=== PATIENT | male | born 1965 | race Caucasian/White ===

== ENCOUNTER 2020-12-05 07:44 | Outpatient (CLI) | payer OTHER, SELFPAY ==
--- NOTE | 2020-12-21 16:50 | WPDHOMESLEEP ---
Sleep Study - Home Unattended Date of Study: 12/05/20 Ordering Provider: YORDY Posey-Mike Interpreting Provider: Emilee Reid MD [facility] Sleep Study Type: Watch PAT Height: 1.65 m Weight: 79.379 kg Body Mass Index: 29.1 Neck Circumference (inches): 17.5 [place]: 10 Reason for Sleep Study Snoring, wakes up tired Sleep History Kenton Singh is a 54 year old man with poor quality sleep. He constantly snores loudly enough that others complain. He rarely awakens at night with heartburn, belching or coughing. He does not awaken from sleep feeling short of breath. He rarely has trouble sleeping with a cold. He does not wake up gasping for breath at night, does not have breathing problems witnessed by others and does not sweat excessively at night. He does not notice his heart pounding irregularly at night. He occasionally falls asleep during the day, never involuntarily and never while driving. He does not have loss of muscle tone with strong emotion. He does not have daytime difficulties during the daytime at work due to excessive sleepiness. He does not feel paralyzed on waking or falling asleep and does not have vivid dreamlike scenes upon awakening or falling asleep. He does not feel afraid to go to sleep. He does not have nightmares. He frequently remembers his dreams. He occasionally has racing thoughts. He does not feel sad or depressed. He frequently feels anxious. He rarely has muscular tension. He rarely notices parts of his body jerking. He does not kick at night. He denies having crawling and aching feelings in his legs or any kind of leg pain at night. He does not have morning jaw pain. He does not grind his teeth during sleep. He is not bothered by pain during the day. He is not awakened by pain at night. He occasionally wakes up feeling stiff in the morning. He does not wake up with sore or achy muscles. He does not wake up with pain in the neck and spine. He reports a 20 lb weight gain in the last year. Normal bedtime is 9:00 p.m. falling asleep within 10-15 minutes waking up a few times at night to roll over. It takes about 5 minutes to get to sleep again. He wakes in the morning between 4:00 a.m. and 5:30 a.m.. He is currently working overtime and this is why he has to be up at 4:00 am. On the weekends he goes to bed later, 10:30 p.m. and he gets recovery sleep, wakes at 9:00 a.m.. He does take naps. A short nap is not refreshing. He may be drowsy some mornings. On occasion, he awakens feeling refreshed. Habits: Never smoked tobacco. Caffeine 3 servings a day. No alcohol or recreational drugs. [facility] Past Medical History Medical History (Updated 12/21/20 @ 20:27 by Emilee Reid MD) Chicken pox Depression Hypercholesterolemia with hyperglyceridemia Measles Sleep apnea Surgical History Surgical History H/O shoulder surgery right shoulder surgery Family History Family History Mother Family history of diabetes mellitus in first degree relative Sibling Hypertension Diabetes mellitus Social History Social History (Updated 04/04/20 @ 11:30 by Bhargavi Mojica [facility]) Smoking status: Never smoker Alcohol intake: current Medications Home Medications Medication Instructions Recorded Confirmed Type atorvastatin 10 mg tablet 10 mg PO DAILY #90 tablet 07/26/20 07/26/20 Rx duloxetine 60 mg capsule,delayed 60 mg PO DAILY #90 cap 07/26/20 07/26/20 Rx release fluticasone propionate 50 2 spray INTRANASAL DAILY 07/26/20 07/26/20 History mcg/actuation nasal spray,suspension loratadine 10 mg tablet 10 mg PO DAILY 07/26/20 07/26/20 History Sleep Procedure The sleep study was completed using [employer] a technically adequate device with seven channels: peripheral arterial tone, actigraphy, body position, snore, respiratory movement, pulse oximetry, sleep
[2020-12-21 20:16] VITALS: BMI 29.1
== END 2020-12-05 07:45 | disposition home or self-care (01) ==
LOC: ANHCSM 07:45
PROVIDERS: PCP Internal Medicine; Visit Provider Clinical Nurse Specialist
DX: G47.33 Obstructive sleep apnea (adult) (pediatric) (principal); G47.10 Hypersomnia, unspecified; Z79.899 Other long term (current) drug therapy
CPT/HCPCS: 95800

== ENCOUNTER → 2021-01-24 06:44 | Outpatient (CLI) | payer OTHER, SELFPAY ==
[2021-01-24 17:04] LABS: SARS-CoV-2 RNA PCR Negative
== END ==
PROVIDERS: PCP Internal Medicine; Visit Provider Internal Medicine Critical Care Medicine
DX: R68.89 Other general symptoms and signs (principal); Z20.822 Contact with and (suspected) exposure to COVID-19
CPT/HCPCS: C9803; U0003; U0005

== ENCOUNTER 2021-01-26 08:00 | Outpatient (CLI) | payer OTHER, SELFPAY ==
--- NOTE | 2021-02-14 13:03 | WPDSLEEPSTUD ---
Sleep Study Date of Study: 01/26/21 Ordering Provider: ANNI Posey Interpreting Physician: Emilee Reid MD Sleep Study Type: CPAP Titration Height: 1.65 m Weight: 83.461 kg Body Mass Index: 30.6 Neck Circumference (inches): 16 [place]: 8 Reason for Sleep Study Home sleep test with WatchPat on 12/05/2020 with moderate obstructive sleep apnea AHI 22.1 with half the events scored as central apneas, desaturation to 77% and snoring. He had increased AHI in the supine position, AHI 90.6; He presents for CPAP titration. Sleep History Kenton Singh is a 54 year old man with poor quality sleep. He constantly snores loudly enough that others complain. He rarely awakens at night with heartburn, belching or coughing. He does not awaken from sleep feeling short of breath. He rarely has trouble sleeping with a cold. He does not wake up gasping for breath at night, does not have breathing problems witnessed by others and does not sweat excessively at night. He does not notice his heart pounding irregularly at night. He occasionally falls asleep during the day, never involuntarily and never while driving. He does not have loss of muscle tone with strong emotion. He does not have daytime difficulties during the daytime at work due to excessive sleepiness. He does not feel paralyzed on waking or falling asleep and does not have vivid dreamlike scenes upon awakening or falling asleep. He does not feel afraid to go to sleep. He does not have nightmares. He frequently remembers his dreams. He occasionally has racing thoughts. He does not feel sad or depressed. He frequently feels anxious. He rarely has muscular tension. He rarely notices parts of his body jerking. He does not kick at night. He denies having crawling and aching feelings in his legs or any kind of leg pain at night. He does not have morning jaw pain. He does not grind his teeth during sleep. He is not bothered by pain during the day. He is not awakened by pain at night. He occasionally wakes up feeling stiff in the morning. He does not wake up with sore or achy muscles. He does not wake up with pain in the neck and spine. He reports a 20 lb weight gain in the last year. Normal bedtime is 9:00 p.m. falling asleep within 10-15 minutes waking up a few times at night to roll over. It takes about 5 minutes to get to sleep again. He wakes in the morning between 4:00 a.m. and 5:30 a.m.. He is currently working overtime and this is why he has to be up at 4:00 am. On the weekends he goes to bed later, 10:30 p.m. and he gets recovery sleep, wakes at 9:00 a.m.. He does take naps. A short nap is not refreshing. He may be drowsy some mornings. On occasion, he awakens feeling refreshed. Habits: Never smoked tobacco. Caffeine 3 servings a day. No alcohol or recreational drugs. [facility] Past Medical History Medical History (Updated 02/14/21 @ 13:13 by Emilee Reid MD) Chicken pox Depression Hypercholesterolemia with hyperglyceridemia Measles Obstructive sleep apnea (~11/2020) Sleep apnea Surgical History Surgical History H/O shoulder surgery right shoulder surgery Family History Family History Mother Family history of diabetes mellitus in first degree relative Sibling Hypertension Diabetes mellitus Social History Social History (Updated 04/04/20 @ 11:30 by Bhargavi Mojica [facility]) Smoking status: Never smoker Alcohol intake: current Medications Home Medications Medication Instructions Recorded Confirmed Type atorvastatin 10 mg tablet 10 mg PO DAILY #90 tablet 07/26/20 07/26/20 Rx duloxetine 60 mg capsule,delayed 60 mg PO DAILY #90 cap 07/26/20 07/26/20 Rx release fluticasone propionate 50 2 spray INTRANASAL DAILY 07/26/20 07/26/20 History mcg/actuation nasal spray,suspension loratadine 10 mg tablet 10 mg PO CLARITA
[2021-02-14 13:05] VITALS: BMI 30.6
== END 2021-01-26 08:01 | disposition home or self-care (01) ==
LOC: ANHCSM 08:01
PROVIDERS: PCP Internal Medicine; Visit Provider Clinical Nurse Specialist
DX: G47.33 Obstructive sleep apnea (adult) (pediatric) (principal)
CPT/HCPCS: 95811

== ENCOUNTER 2024-06-05 13:36 | Emergency (ER) | payer OTHER, SELFPAY ==
[2024-06-05] VITALS (11 sets, daily range): BP systolic 120–147; BP diastolic 77–90; PULSE 73–85; RESP 13–22; TEMP 36.6–36.8; O2SAT 73–100
--- NOTE | ~2024-06-05 | XR_ITS ---
XR chest 2V DATE: 06/05/2024 16:26 INDICATION: Shortness of breath TECHNIQUE: PA and lateral views COMPARISON: None FINDINGS: Normal heart size. No hilar or mediastinal enlargement. No pulmonary infiltrate or consolid ation, pleural effusion or pulmonary vascular congestion or pneumothorax. Included skeletal structures are unremarkable other than prominent degenerative disc disease in the l ower cervical spine and minimal degenerative spurring of the thoracic spine.. IMPRESSION: No active cardiopulmonary disease Reviewed, dictated and finalized at location A.
--- NOTE | 2024-06-05 15:03 | PC.NURSE ---
Pt reports he took pre-work out creatine this morning, 1-2 hours after taking developed diaphoresis, shaking, feeling of syncope & became very anxious. He proceeded to drink an energy drink. Pt states symptoms have increased. Denies diabetes, cardiac history
--- NOTE | 2024-06-05 15:47 | ECG_ITS ---
Test Date: 2024-06-05 16:05:19 Measurements Intervals [place] Rate: 74 P: 45 NH: 135 QRS: 1 QRSD: 97 T: 12 QT: 418 QTc: 464 Interpretive Statements SINUS RHYTHM NORMAL ECG No previous ECG available for comparison Electronically Signed On 06-05-2024 20:34:46 CDT by Gordo Cole D.O.
[2024-06-05 16:17] LABS: Basophils Absolute Auto 0.1 K/mm3 (0.0-0.1); Basophils Percent Auto 0.4 % (0.2-1.2); Eosinophils Absolute Auto 0.1 K/mm3 (0-0.3); Hematocrit 42.7 % (42.0-52.0); Hemoglobin 14.7 g/dL (14.0-18.0); Immature Granulocyte Absolute 0.04 K/mm3 (0.00-0.031); Immature Granulocyte Percent A 0.3 % (0-0.5); Lymphocytes Absolute Auto 1.77 K/mm3 (0.9-3.2); Lymphocytes Percent Auto 14.8 % (18.3-44.2); Mean Corpuscular HGB Conc 34.4 g/dl (32-36); Mean Corpuscular Hemoglobin 31.1 pg (26-34); Mean Corpuscular Volume 90.3 fl (80-100); Mean Platelet Volume 10.6 fl (7.4-10.4); Monocytes Absolute Auto 0.7 K/mm3 (0.1-0.6); Monocytes Percent Auto 5.9 % (2.6-8.5); Neutrophils Absolute Auto 9.3 K/mm3 (1.3-6.7); Neutrophils Percent Auto 77.6 % (45.5-73.1); Platelet Count Result 247 k/mm3 (150-375); Red Blood Count 4.73 M/mm3 (4.6-6.20); Red Cell Distribution Width 12.4 % (11.5-14.5)
--- NOTE | 2024-06-05 16:24 | PC.NURSE ---
Pt c/o nausea, Violet PAINT PREPPER notified and orders received
[2024-06-05 16:25] LABS: Lactic Acid Reflex 1.3 mmol/L (0.7-2.0)
[2024-06-05 16:27] LABS: Alanine Aminotransferase 40 U/L (6-50); Albumin Level 4.5 g/dL (3.5-5.1); Alkaline Phosphatase 48 U/L (38-126); Anion Gap 8 mmol/L (4-12); Aspartate Amino Transferase 30 U/L (17-59); Bilirubin,Total 0.6 mg/dL (0.2-1.3); Blood Urea Nitrogen 20 mg/dL (9-20); Calcium 9.5 mg/dL (8.4-10.2); Carbon Dioxide 29 mmol/L (22-30); Chloride 100 mmol/L (98-107); Estimated CRCL calculation 63 ml/min; Estimated Glomerular Filt Rate > 60; Glucose 105 mg/dL (65-110); Potassium 3.7 mmol/L (3.4-5.0); Sodium 137 mmol/L (137-145)
[2024-06-05] MEDS: SODIUM CHLORIDE 0.9% IV 1,000 ML 999 ML IV CONT (16:30)
[2024-06-05] MEDS: ONDANSETRON INJ 4 MG/2 ML VIAL IV PUSH (16:30)
[2024-06-05 16:32] LABS: D Dimer < 0.27 ug/mL (<0.48)
[2024-06-05 16:38] LABS: Troponin I < 0.012 ng/mL (0.000-0.034)
--- NOTE | 2024-06-05 16:44 | ED.GENADULT ---
HPI - General Adult General Chief complaint: Anxiety Stated complaint: anxious Time Seen by Provider: 06/05/24 14:50 History of Present Illness HPI narrative: Patient is a 58-year-old male who presents to the ER complaints of a near syncopal episode prior to. He reports he took some Creatine powder before working out this morning. Patient reports he went home had approximately 3 sips of the energy drink while they were at a friend's house. On their way home patient started experiencing motion sickness. He started sweating, shaking, and feeling short of breath. He reports he vomited and felt like he was going to pass out. Patient reports he has not drink much water today. He reports his only medical history is high cholesterol for which he takes medication at home. Patient denies chest pain, other signs of illness, or one-sided weakness/tingling/numbness. Related Data Home Medications Medication Instructions Recorded Confirmed aspirin 81 mg tablet,delayed 81 mg PO DAILY 12/11/21 08/06/23 release (Adult Low Dose Aspirin) Allergies Allergy/AdvReac Type Severity Reaction Status Date / Time No Known Allergies Allergy Verified 06/05/24 13:39 Review of Systems Review of Systems: All systems reviewed & are unremarkable except as noted in HPI and below PMFSH Past Medical History Medical History Chicken pox Depression Hypercholesterolemia with hyperglyceridemia Measles Obesity Obstructive sleep apnea (~11/2020) Sleep apnea Snoring Trigger finger Surgical History Surgical History H/O shoulder surgery right shoulder surgery Family History Family History Mother Family history of diabetes mellitus in first degree relative Sibling Hypertension Diabetes mellitus Social History Social History Smoking status: Never smoker Alcohol intake: current Alcohol use details: occasional Substance use type: does not use Lack of Transportation: No Lack of Food: Never True Current Housing: I Have Housing Concerned About Future Housing: No Difficulty Paying Gas/Electric Bills: No Difficulty Paying for Meds: No Currently Unemployed: No Education: Trade/Vocational Certificate Difficulty w/ Childcare or Family Care: No Course Vital Signs Vital signs: Vital Signs Temperature 36.6 C 06/05/24 13:39 Pulse Rate 85 06/05/24 13:39 Respiratory Rate 16 06/05/24 13:39 Blood Pressure 147/90 H 06/05/24 13:39 Pulse Oximetry 100 06/05/24 13:39 Temperature 36.6 C 06/05/24 13:39 Pulse Rate 73 06/05/24 16:31 Respiratory Rate 16 06/05/24 16:31 Blood Pressure 133/83 06/05/24 16:31 Pulse Oximetry 73 L 06/05/24 16:31 Medical Decision Making MDM Narrative Medical decision making narrative: Patient is a 58-year-old male who presents to the ER complaints of a near syncopal episode prior to. He reports he took some Creatine powder before working out this morning. Patient reports he went home had approximately 3 sips of the energy drink while they were at a friend's house. On their way home patient started experiencing motion sickness. He started sweating, shaking, and feeling short of breath. He reports he vomited and felt like he was going to pass out. Patient reports he has not drink much water today. He reports his only medical history is high cholesterol for which he takes medication at home. He endorses continued nausea. Patient denies chest pain, other signs of illness, or one-sided weakness/tingling/numbness. Pt's physical examination is unremarkable. Blood work was drawn and results indicated mild dehydration. Will give patient 1 L normal saline IV bolus and we evaluate patient. Will also give patient Zofran for nausea. U
[2024-06-05 16:52] LABS: Influenza A QL RT-PCR Negative (Negative); Influenza B QL RT-PCR Negative (Negative); RSV RNA, RT-PCR Negative (Negative); SARS-CoV-2 RNA PCR Negative (Negative)
== END 2024-06-05 19:03 | disposition home or self-care (01) ==
PROVIDERS: Emergency Provider Registered Nurse; PCP Internal Medicine
DX: E86.0 Dehydration (principal); E78.2 Mixed hyperlipidemia; E66.9 Obesity, unspecified; Z68.28 Body mass index [BMI] 28.0-28.9, adult; G47.33 Obstructive sleep apnea (adult) (pediatric); Z20.822 Contact with and (suspected) exposure to COVID-19; Z79.82 Long term (current) use of aspirin; Z79.899 Other long term (current) drug therapy
CPT/HCPCS: 36415; 71046; 80053; 83605; 84443; 84484; 85025; 85380; 87637; 93005; 96361; 96374; 99284; J2405; J7030

== ENCOUNTER 2025-03-07 15:38 | Emergency (ER) | payer OTHER, SELFPAY ==
[2025-03-07 15:43] VITALS: BP 121/83; PULSE 91; RESP 16; TEMP 36.8; O2SAT 99
--- NOTE | 2025-03-07 15:47 | ED_ITS ---
HPI - Skin/Abscess/Foreign Bdy General Chief complaint: Skin/Abscess/Foreign Body Stated complaint: Poison Callie Source: patient and RN notes reviewed Mode of arrival: ambulatory Limitations: no limitations History of Present Illness HPI narrative: Patient is a 59-year-old male who presents to the [facility] with complaints of possible poison callie. Patient states that he was cutting some grasses and weeds of his neighbors that was extending over his fence the weekend before last. patient reports rash to bilateral lower legs and between fingers to bilateral hands. Reports itching. Patient has been using Benadryl spray with some relief. Related Data Home Medications ?Medication ?Instructions ?Recorded ?Confirmed ?Last Taken ?Type aspirin 81 mg tablet,delayed 81 mg PO DAILY 12/11/21 02/07/25 Unknown History release (Adult Low Dose Aspirin) Allergies Allergy/AdvReac Type Severity Reaction Status Date / Time No Known Allergies Allergy Verified 03/07/25 15:56 Review of Systems Review of Systems: CONSTITUTIONAL: Denies fever, chills, or sweats. EYES: Denies visual changes, redness, or discharge. ENT: Denies otalgia and sore throat CARDIOVASCULAR: Denies chest pain, palpitations, or edema. RESPIRATORY: Denies cough or dyspnea. GASTROINTESTINAL: Denies abdominal pain, nausea, vomiting, or diarrhea. GENITOURINARY: Denies dysuria or hematuria. SKIN: Reports rash and itching. MUSCULOSKELETAL: Denies back pain, joint pain, or myalgia. NEUROLOGIC: Denies headache, numbness, or weakness. Pertinent positives per HPI. ON LICENSE OF [facility] Past Medical History Medical History Hospital discharge follow-up Increasing prostate specific antigen level Rising PSA remaining within normal limits Neck Pain Screening for endocrine disorder Trigger finger Obesity Obstructive sleep apnea (~11/2020) Snoring Depression Sleep apnea Measles Chicken pox Hypercholesterolemia with hyperglyceridemia Surgical History Surgical History H/O shoulder surgery right shoulder surgery Family History Family History Mother Family history of diabetes mellitus in first degree relative Sibling Hypertension Diabetes mellitus Social History Social History Smoking status: Never smoker Alcohol intake: current Alcohol use details: occasional Substance use type: does not use Lack of Transportation: No Lack of Food: Never True Current Housing: I Have Housing Concerned About Future Housing: No Difficulty Paying Gas/Electric Bills: No Difficulty Paying for Meds: No Currently Unemployed: No Education: Trade/Vocational Certificate Difficulty w/ Childcare or Family Care: No Comments At the time of my signature, I reviewed and agree with the nursing past medical, surgical, social, and family history. There is no relevant family history pertinent to the patient complaint. Exam Narrative: GENERAL: This is a well-nourished, well-developed patient, in no apparent distress. HEAD: normocephalic, atraumatic. EYES: Sclera clear/white. Vision is grossly intact. EARS: External ears normal. Hearing grossly intact. NOSE: External nose normal with no obvious nasal discharge, nares without redness, no rhinorrhea. THROAT: Mucous membranes moist, posterior pharynx clear. NECK: Neck supple, non-tender without lymphadenopathy, masses or thyromegaly. CARDIOVASCULAR: Regular rate and rhythm without murmurs, gallops, or rubs. RESPIRATORY: Clear to auscultation. Breath sounds equal bilaterally. No wheezes, rales, or rhonchi. GASTROINTESTINAL: Abdomen soft, non-tender, nondistended. Bowel sounds are active. No hepato-splenomegaly, or palpable masses. No guarding. SKIN: Vestibular rash to bilateral lower legs and between the fingers of bilateral hands. + itching. NEURO: awake, alert, and oriented to person, place and time. There were no obvious focal neurologic abnormalities. Course Course Level of Care: Express Care Visit Vital Signs Vital signs: Vital Signs Temperature 98.2 F 03/07/25 15:43 Pulse Rate 91 03/07/25 15:43 Respiratory Rate 16 03/07/25 15:43 Blood Pressure 121/83 03/07/25 15:43 Pulse Oximetry 99 03/07/25 15:43 Oxygen Delivery Room Air 03/07/25 15:43 Temperature 98.2 F 03/07/25 15:43 Pulse Rate 91 03/07/25 15:43 Respiratory Rate 16 03/07/25 15:43 Blood Pressure 121/83 03/07/25 15:43 Pulse Oximetry 99 03/07/25 15:43 Oxygen Delivery Room Air 03/07/25 15:43 Reviewed MDM - Skin/Abscess/Foreign Bdy MDM Narrative Medical decision making narrative: Prevention is always better than treatment. Learn to identify poison callie, oak, and sumac and avoid it. Wear long sleeves, long pants, shoes, and socks. If you touched the plant, try to keep your hands away from your eyes, mouth, and face. Wash the skin thoroughly with soap and cool water as soon as possible. Scrub under the fingernails with a brush to prevent spreading of the resin to other parts of the body by touching or scratching. Remember to wash any clothing with soap and hot water as the resin can persist for many months and cause further dermatitis. Use calamine lotion on the affect area. IF symptoms get worse to follow up with your primary care provider or seek ER visit if you developing difficulty breathing, weakness, dizziness. Differential Diagnosis Differential diagnosis: Likely cellulitis, insect bites and contact dermatitis Critical Care Time Critical Care Time Critical Care Time: No Discharge Plan Discharge Clinical Impression: Poison callie dermatitis Patient Disposition: Home Condition: Stable Instructions: Poison Callie (ED) Additional Instructions: Prevention is always better than treatment. Learn to identify poison callie, oak, and sumac and avoid it. Wear long sleeves, long pants, shoes, and socks. If you touched the plant, try to keep your hands away from your eyes, mouth, and face. Wash the skin thoroughly with soap and cool water as soon as possible. Scrub under the fingernails with a brush to prevent spreading of the resin to other parts of the body by touching or scratching. Remember to wash any clothing with soap and hot water as the resin can persist for many months and cause further dermatitis. Use calamine lotion on the affect area. IF symptoms get worse to follow up with your primary care provider or seek ER visit if you developing difficulty breathing, weakness, dizziness. Patient Language: Azeri Prescriptions: New prednisone 10 mg tablet 10 mg PO DIRECTED Qty: 35 0RF Rx Instructions: Take 4 tabs on days 1-5, take 2 tabs on days 6-10, take 1 tab on days 11-15 No Action fluticasone propionate 50 mcg/actuation spray,suspension 2 spray intranasal DAILY Qty: 16 2RF Rx Instructions: administer into each nostril aspirin [Adult Low Dose Aspirin] 81 mg tablet,delayed release (DR/EC) 81 mg PO DAILY atorvastatin 20 mg tablet 20 mg PO QHS Qty: 90 1RF duloxetine 60 mg capsule,delayed release(DR/EC) See Rx Instructions .ROUTE .COMPLEX Qty: 90 1RF Dose Instruction: TAKE 1 CAPSULE DAILY Rx Instructions: TAKE 1 CAPSULE DAILY Follow-up/Referrals: Shakila Hinson, [facility] [Primary Care Provider] - Time of Disposition: 16:04
== END 2025-03-07 16:06 | disposition home or self-care (01) ==
PROVIDERS: Emergency Provider Nurse Practitioner; PCP Clinical Nurse Specialist
DX: L23.7 Allergic contact dermatitis due to plants, except food (principal)
CPT/HCPCS: 99213; G0463